=== PATIENT | male | born 1950 | race Caucasian/White ===

== ENCOUNTER 2021-12-29 18:07 | Inpatient (IN) ==
[2021-12-29] MEDS ORDERED: Ipratropium/Albuterol Neb 3 ML IH PRN (18:17)
[2021-12-29] MEDS ORDERED: Ondansetron ODT 4 MG TAB.RAPDIS SL PRN (18:23)
[2021-12-29] MEDS: traZODone 50 MG TABLET PO PRN (20:28)
[2021-12-29] MEDS: QUEtiapine Fumarate 100 MG TABLET PO SCH (20:29)
[2021-12-29] MEDS: Artificial Tears SOLN 15 ML BOTTLE BOTH EYES SCH (20:29)
[2021-12-29] MEDS: Famotidine 20 MG TABLET PO SCH (20:29)
[2021-12-29] MEDS: Budesonide/Formoterol 80/4.5 1 PUFF INH IH SCH (21:20)
[2021-12-30] MEDS: *HR* Enoxaparin 40 MG/0.4 ML SYRINGE SQ SCH (06:18)
[2021-12-30 07:18] LABS: Basophils % 0.5 %; Eosinophils # 0.1 K/mcL (0.0-0.6); Eosinophils % 2.2 %; Hematocrit 32.6 % (37.5-50.1); Hemoglobin 10.9 g/dL (12.9-16.9); Immature Granulocytes % 0.5 % (0-4); Lymphocytes # 1.1 K/mcL (0.6-4.6); Lymphocytes % 18.9 %; Mean Corpuscular HGB Conc 33.4 g/dL (31.6-35.5); Mean Corpuscular Hemoglobin 31.4 pg (28.0-33.3); Mean Corpuscular Volume 93.9 fL (83.0-100.0); Mean Platelet Volume 10.7 fL (9.4-12.4); Monocytes # 0.3 K/mcL (0.0-1.3); Monocytes % 5.7 %; Neutrophils # 4.3 K/mcL (1.6-8.9); Platelet Count 202 K/mcL (140-400); Red Blood Count 3.47 M/mcL (4.19-5.50); Red Cell Distribution Width 11.4 % (11.5-14.5); Segmented Neutrophils % 72.2 %
[2021-12-30] MEDS: Famotidine 20 MG TABLET PO SCH ×2 (07:40→20:00)
[2021-12-30] MEDS: Artificial Tears SOLN 15 ML BOTTLE BOTH EYES SCH ×3 (07:40→20:01)
[2021-12-30 07:49] LABS: BUN/Creatinine Ratio 22 (6-26); Blood Urea Nitrogen 23 mg/dL (8-23); Calcium 8.6 mg/dL (8.6-10.3); Carbon Dioxide 32 mEq/L (23-29); Chloride 104 mEq/L (98-107); Glucose 117 mg/dL (70-105); Osmolality,Calculated 295 (280-300); Potassium 4.1 mEq/L (3.5-5.1); Sodium 140 mEq/L (136-145); eGFR For African Americans > 60 (> 60); eGFR For Non-African Americans > 60 (> 60)
[2021-12-30] MEDS: QUEtiapine Fumarate 100 MG TABLET PO SCH ×2 (08:12→20:01)
[2021-12-30] MEDS: Cholecalciferol (D-3) 1,000 UNIT (25MCG) TABLET PO SCH (08:12)
[2021-12-30] MEDS: Multivit/Ca/Min/Fe/FA 1 TAB TABLET PO SCH (08:12)
[2021-12-30] MEDS: Aspirin 81 MG TAB.CHEW PO SCH (08:12)
[2021-12-30] MEDS: lisinopriL 10 MG TABLET PO SCH (08:12)
[2021-12-30] MEDS: Budesonide/Formoterol 80/4.5 1 PUFF INH IH SCH ×2 (08:49→20:50)
[2021-12-30] MEDS: traZODone 50 MG TABLET PO PRN (20:00)
[2021-12-31] MEDS: *HR* Enoxaparin 40 MG/0.4 ML SYRINGE SQ SCH (06:08)
[2021-12-31] MEDS: Artificial Tears SOLN 15 ML BOTTLE BOTH EYES SCH ×3 (08:19→20:19)
[2021-12-31] MEDS: Aspirin 81 MG TAB.CHEW PO SCH (08:20)
[2021-12-31] MEDS: Cholecalciferol (D-3) 1,000 UNIT (25MCG) TABLET PO SCH (08:20)
[2021-12-31] MEDS: Famotidine 20 MG TABLET PO SCH ×2 (08:20→20:16)
[2021-12-31] MEDS: QUEtiapine Fumarate 100 MG TABLET PO SCH ×2 (08:20→20:16)
[2021-12-31] MEDS: lisinopriL 10 MG TABLET PO SCH (08:20)
[2021-12-31] MEDS: Multivit/Ca/Min/Fe/FA 1 TAB TABLET PO SCH (08:20)
[2021-12-31] MEDS: Budesonide/Formoterol 80/4.5 1 PUFF INH IH SCH ×2 (08:56→21:05)
[2022-01-01] MEDS: *HR* Enoxaparin 40 MG/0.4 ML SYRINGE SQ SCH (06:03)
[2022-01-01] MEDS: Artificial Tears SOLN 15 ML BOTTLE BOTH EYES SCH ×3 (07:56→22:28)
[2022-01-01] MEDS: Aspirin 81 MG TAB.CHEW PO SCH (07:56)
[2022-01-01] MEDS: QUEtiapine Fumarate 100 MG TABLET PO SCH ×2 (07:56→22:28)
[2022-01-01] MEDS: Famotidine 20 MG TABLET PO SCH ×2 (07:56→22:28)
[2022-01-01] MEDS: lisinopriL 10 MG TABLET PO SCH (07:56)
[2022-01-01] MEDS: Cholecalciferol (D-3) 1,000 UNIT (25MCG) TABLET PO SCH (07:56)
[2022-01-01] MEDS: Multivit/Ca/Min/Fe/FA 1 TAB TABLET PO SCH (07:57)
[2022-01-01] MEDS: Budesonide/Formoterol 80/4.5 1 PUFF INH IH SCH ×2 (09:36→22:03)
[2022-01-01] MEDS: traZODone 50 MG TABLET PO PRN (22:29)
[2022-01-02] MEDS: *HR* Enoxaparin 40 MG/0.4 ML SYRINGE SQ SCH (06:33)
[2022-01-02] MEDS: Artificial Tears SOLN 15 ML BOTTLE BOTH EYES SCH ×3 (07:36→19:53)
[2022-01-02] MEDS: Aspirin 81 MG TAB.CHEW PO SCH (07:37)
[2022-01-02] MEDS: Cholecalciferol (D-3) 1,000 UNIT (25MCG) TABLET PO SCH (07:37)
[2022-01-02] MEDS: lisinopriL 10 MG TABLET PO SCH (07:37)
[2022-01-02] MEDS: Famotidine 20 MG TABLET PO SCH ×2 (07:37→19:54)
[2022-01-02] MEDS: QUEtiapine Fumarate 100 MG TABLET PO SCH ×2 (07:37→19:54)
[2022-01-02] MEDS: Multivit/Ca/Min/Fe/FA 1 TAB TABLET PO SCH (07:37)
[2022-01-02] MEDS: Budesonide/Formoterol 80/4.5 1 PUFF INH IH SCH ×2 (08:34→21:29)
[2022-01-02] MEDS: traZODone 50 MG TABLET PO PRN (21:56)
[2022-01-03] MEDS: *HR* Enoxaparin 40 MG/0.4 ML SYRINGE SQ SCH (06:32)
[2022-01-03] MEDS: Famotidine 20 MG TABLET PO SCH ×2 (07:18→20:41)
[2022-01-03] MEDS: Cholecalciferol (D-3) 1,000 UNIT (25MCG) TABLET PO SCH (07:18)
[2022-01-03] MEDS: QUEtiapine Fumarate 100 MG TABLET PO SCH ×2 (07:18→20:42)
[2022-01-03] MEDS: Multivit/Ca/Min/Fe/FA 1 TAB TABLET PO SCH (07:18)
[2022-01-03] MEDS: lisinopriL 10 MG TABLET PO SCH (07:18)
[2022-01-03] MEDS: Artificial Tears SOLN 15 ML BOTTLE BOTH EYES SCH ×3 (07:18→20:43)
[2022-01-03] MEDS: Aspirin 81 MG TAB.CHEW PO SCH (07:18)
[2022-01-03] MEDS: Budesonide/Formoterol 80/4.5 1 PUFF INH IH SCH ×2 (08:25→20:38)
[2022-01-04] MEDS: traZODone 50 MG TABLET PO PRN (01:02)
[2022-01-04] MEDS: *HR* Enoxaparin 40 MG/0.4 ML SYRINGE SQ SCH (05:27)
[2022-01-04] MEDS: QUEtiapine Fumarate 100 MG TABLET PO SCH ×2 (07:53→20:10)
[2022-01-04] MEDS: Famotidine 20 MG TABLET PO SCH ×2 (07:53→20:10)
[2022-01-04] MEDS: Cholecalciferol (D-3) 1,000 UNIT (25MCG) TABLET PO SCH (07:53)
[2022-01-04] MEDS: Aspirin 81 MG TAB.CHEW PO SCH (07:54)
[2022-01-04] MEDS: Multivit/Ca/Min/Fe/FA 1 TAB TABLET PO SCH (07:54)
[2022-01-04] MEDS: lisinopriL 10 MG TABLET PO SCH (07:54)
[2022-01-04] MEDS: Artificial Tears SOLN 15 ML BOTTLE BOTH EYES SCH ×3 (07:55→20:11)
[2022-01-04] MEDS: Budesonide/Formoterol 80/4.5 1 PUFF INH IH SCH ×2 (09:10→20:44)
[2022-01-05] MEDS: *HR* Enoxaparin 40 MG/0.4 ML SYRINGE SQ SCH (05:31)
[2022-01-05] MEDS: Budesonide/Formoterol 80/4.5 1 PUFF INH IH SCH ×2 (09:37→20:30)
[2022-01-05] MEDS: Multivit/Ca/Min/Fe/FA 1 TAB TABLET PO SCH (09:44)
[2022-01-05] MEDS: Aspirin 81 MG TAB.CHEW PO SCH (09:44)
[2022-01-05] MEDS: Famotidine 20 MG TABLET PO SCH ×2 (09:44→19:44)
[2022-01-05] MEDS: Cholecalciferol (D-3) 1,000 UNIT (25MCG) TABLET PO SCH (09:44)
[2022-01-05] MEDS: QUEtiapine Fumarate 100 MG TABLET PO SCH ×2 (09:45→19:45)
[2022-01-05] MEDS: lisinopriL 10 MG TABLET PO SCH (09:45)
[2022-01-05] MEDS: Loratadine 10 MG TABLET PO PRN (09:45)
[2022-01-05] MEDS: Artificial Tears SOLN 15 ML BOTTLE BOTH EYES SCH ×3 (09:46→19:44)
[2022-01-06] MEDS: *HR* Enoxaparin 40 MG/0.4 ML SYRINGE SQ SCH (05:42)
[2022-01-06] MEDS: Budesonide/Formoterol 80/4.5 1 PUFF INH IH SCH ×2 (08:25→20:39)
[2022-01-06] MEDS: Aspirin 81 MG TAB.CHEW PO SCH (08:49)
[2022-01-06] MEDS: Multivit/Ca/Min/Fe/FA 1 TAB TABLET PO SCH (08:49)
[2022-01-06] MEDS: QUEtiapine Fumarate 100 MG TABLET PO SCH ×2 (08:49→20:02)
[2022-01-06] MEDS: Loratadine 10 MG TABLET PO PRN (08:49)
[2022-01-06] MEDS: lisinopriL 10 MG TABLET PO SCH (08:49)
[2022-01-06] MEDS: Famotidine 20 MG TABLET PO SCH ×2 (08:49→20:03)
[2022-01-06] MEDS: Cholecalciferol (D-3) 1,000 UNIT (25MCG) TABLET PO SCH (08:50)
[2022-01-06] MEDS: Artificial Tears SOLN 15 ML BOTTLE BOTH EYES SCH ×3 (08:50→20:04)
[2022-01-07 07:03] VITALS: BP 109/57; PULSE 78; RESP 16; TEMP 97.3
[2022-01-07] MEDS: Budesonide/Formoterol 80/4.5 1 PUFF INH IH SCH (09:03)
[2022-01-07] MEDS: *HR* Enoxaparin 40 MG/0.4 ML SYRINGE SQ SCH (09:23)
[2022-01-07] MEDS: Multivit/Ca/Min/Fe/FA 1 TAB TABLET PO SCH (09:24)
[2022-01-07] MEDS: lisinopriL 10 MG TABLET PO SCH (09:24)
[2022-01-07] MEDS: Famotidine 20 MG TABLET PO SCH (09:24)
[2022-01-07] MEDS: Aspirin 81 MG TAB.CHEW PO SCH (09:24)
[2022-01-07] MEDS: Cholecalciferol (D-3) 1,000 UNIT (25MCG) TABLET PO SCH (09:24)
[2022-01-07] MEDS: Artificial Tears SOLN 15 ML BOTTLE BOTH EYES SCH (09:25)
[2022-01-07] MEDS: QUEtiapine Fumarate 100 MG TABLET PO SCH (09:25)
[2022-01-07] MEDS: Loratadine 10 MG TABLET PO PRN (09:25)
[2022-01-07 10:01] VITALS: O2SAT 98
== END 2022-01-07 12:54 | disposition home health service (06) | DRG 190 ==
LOC: INPPIK 18:44
PROVIDERS: ADMIT Family Medicine; ATTEND Family Medicine